=== PATIENT | female | born 1965 | race African-American/Black ===

== ENCOUNTER 2019-02-10 23:51 | Emergency (ER) | payer OTHER ==
[~2019-02-10] VITALS: Ht 172.7 cm; Wt 75.9 kg
[~2019-02-10 23:51] MED LIST: BEN50 PO; EPIN0.3P4 INJ; PRED20TA PO
[2019-02-10 23:53] VITALS: Ht 172.7 cm; Wt 75.9 kg
[2019-02-11] MEDS ORDERED: ALBUTEROL 0.083% (NEB) 2.5 MG/3 ML AMP INH STA (00:01)
[2019-02-11] MEDS ORDERED: DIPHENHYDRAMINE 50 MG INJ IV STA (00:01)
[2019-02-11] MEDS ORDERED: METHYLPREDNISOLONE 125 MG INJ IV STA (00:01)
[2019-02-11] MEDS ORDERED: FAMOTIDINE 20 MG INJ IV STA (00:01)
[2019-02-11] MEDS ORDERED: IPRATROPIUM (NEB) 0.5 MG/2.5 ML AMP INH STA (00:01)
[2019-02-11 03:16] VITALS: BP 133/76; PULSE 78; RESP 14
--- NOTE | 2019-02-11 03:37 | ERD ---
ER Documentation Chief Complaint Chief Complaint POSS ALLERGIC RX TO CASTOR OIL [id number];ITCHING IN THROAT; AIRWAY PATENT HPI Is a very pleasant female comes in with her throat tightness and tongue swelling status post being exposed to castor oil. Patient has known history to seafood. She denies fevers or chills. She denies any difficulty tolerating secretions. Denies any current issues ROS All systems reviewed and are negative except as per history of present illness. Medications Home Meds Active Scripts Prednisone* (Prednisone*) 20 Mg Tab, 40 MG PO DAILY for 4 Days, TAB Prov:WILMER MERCHANT Jocelyn 02/11/19 Epinephrine (Epipen 2-Robert) 0.3 Mg/0.3 Ml Pen.injctr, 1 EA INJ ONCE PRN for ALLERGIC REACTION, #1 EA Prov:RONSHASTAWILMER Jocelyn 02/11/19 Diphenhydramine Hcl* (Benadryl*) 50 Mg Cap, 50 MG PO Q6H PRN for ITCHING/RASH, #30 CAP Prov:RONLEE VEGASEL Jocelyn 02/11/19 Allergies Allergies: Coded Allergies: rofecoxib (Verified Allergy, Unknown, 02/11/19) PMhx/Soc History of Surgery: Yes (D&C, FIBROID REMOVAL) Anesthesia Reaction: No Hx Neurological Disorder: No Hx Respiratory Disorders: No Hx Cardiac Disorders: Yes (HTN ) Hx Psychiatric Problems: No Hx Miscellaneous Medical Probl: Yes (MIGRAINES ) Hx Alcohol Use: Yes (SOCIAL ) Hx Substance Use: No Hx Tobacco Use: No Smoking Status: Never smoker Physical Exam Vitals Vital Signs Date Temp Pulse Resp B/P (MAP) Pulse Ox O2 O2 Flow FiO2 Time Delivery Rate 02/11/19 78 14 133/76 99 Room Air 03:16 (95) 02/11/19 70 20 97 21 00:29 02/10/19 97.3 82 19 201/104 97 23:53 (136) Physical Exam Const: No acute distress Head: Atraumatic Eyes: Normal Conjunctiva ENT: Normal External Ears, Nose and Mouth. Neck: Full range of motion. No meningismus. Resp: Clear to auscultation bilaterally Cardio: Regular rate and rhythm, no murmurs Abd: Soft, non tender, non distended. Normal bowel sounds Skin: No petechiae or rashes Back: No midline or flank tenderness Ext: No cyanosis, or edema Neur: Awake and alert Psych: Normal Mood and Affect Result Diagram: 02/11/19 0051 02/11/19 0051 Results 24 hrs Laboratory Tests Test 02/11/19 00:51 White Blood Count 5.8 10^3/ul Red Blood Count 4.32 10^6/ul Hemoglobin 12.0 g/dl Hematocrit 38.8 % Mean Corpuscular Volume 89.8 fl Mean Corpuscular Hemoglobin 27.8 pg Mean Corpuscular Hemoglobin Concent 30.9 g/dl Red Cell Distribution Width 12.0 % Platelet Count 228 10^3/UL Mean Platelet Volume 10.4 fl Immature Granulocytes % 0.200 % Neutrophils % 29.9 % Lymphocytes % 57.9 % Monocytes % 8.0 % Eosinophils % 3.5 % Basophils % 0.5 % Nucleated Red Blood Cells % 0.0 /100WBC Immature Granulocytes # 0.010 10^3/ul Neutrophils # 1.7 10^3/ul Lymphocytes # 3.3 10^3/ul Monocytes # 0.5 10^3/ul Eosinophils # 0.2 10^3/ul Basophils # 0.0 10^3/ul Nucleated Red Blood Cells # 0.0 10^3/ul Sodium Level 143 mmol/L Potassium Level 4.3 mmol/L Chloride Level 105 mmol/L Carbon Dioxide Level 32 mmol/L Anion Gap 6 Blood Urea Nitrogen 24 mg/dl Creatinine 1.16 mg/dl Est Glomerular Filtrat Rate mL/min 49 mL/min Glucose Level 103 mg/dl Calcium Level 10.2 mg/dl Total Bilirubin 0.2 mg/dl Direct Bilirubin 0.00 mg/dl Indirect Bilirubin 0.2 mg/dl Aspartate Amino Transf (AST/SGOT) 27 IU/L Alanine Aminotransferase (ALT/SGPT) 34 IU/L Alkaline Phosphatase 55 IU/L Troponin I < 0.012 ng/ml B-Type Natriuretic Peptide 57 PG/ML Total Protein 7.3 g/dl Albumin 4.3 g/dl Globulin 3.00 g/dl Albumin/Globulin Ratio 1.43 Current Medications Medications Dose Sig/Jonathan Start Time Status Last (Trade) Ordered Route PRN Stop Time Admin Dose Reason Admin 50 mg ONCE STAT 02/11/19 DC 02/11/19 Diphenhydrami IV 00:01 02/11/19 00:19 ne HCl 00:11 (Benadryl) Famotidine 20 mg ONCE STAT 02/11/19 DC 02/11/19 (Pepcid Iv) IV 00:01 02/11/19 00:19 00:11 125 mg ONCE STAT 02/11/19 DC 02/11/19 Methylprednis IV 00:01 02/11/19 00:19 olone Sodium 00:11 Succinate (Solu-Medrol) Albuterol 5 mg ONCE STAT 02/11/19 DC 02/11/19 (Proventil INH 00:01 02/11/19 00:28 0.083% (Neb)) 00:11 Ipratropium 0.5 mg ONCE STAT 02/11/19 DC 02/11/19 Center INH 00:01 02/11/19 00:29 (Atrovent 00:11 0.02% (Neb)) Procedures/MDM Chest X-ray 1V Interpreted by me: Soft Tissue: No acute abnormalities Bones: No acute abnormalities Mediastinum/Cardiac Silhouette/Lungs: [No acute abnormalities] EKG: Rate/Rhythm: [Normal Sinus Rhythm] QRS, ST, T-waves: [No changes consistent w/ acute ischemia] Impression: [No evidence of ischemia or arrhythmia] Patient's allergic symptoms have stabilized while they have been evaluated in the department without evidence of persistent systemic reaction. Patient is healthy and capable of treating and responding to rebound reactions. Patient appropriate for outpatient allergy work up and treatment. Patient's blood pressure was elevated (>120/80) but appears stable without evidence of hypertension emergency or urgency. The patient was counseled about the risks of hypertension and urged to pursue outpatient monitoring and therapy within a week with their primary care physician. Departure Diagnosis: Primary Impression: Allergic reaction Encounter type: initial encounter Qualified Codes: T78.40XA - Allergy, unspecified, initial encounter Condition: Stable Patient Instructions: Anaphylactic Shock WILMER MERCHANT Feb 11, 2019 03:37
== END 2019-02-11 04:56 | disposition home or self-care (01) ==
LOC: E/R 23:51
DX: R07.0 Pain in throat (principal); I10 Essential (primary) hypertension
CPT/HCPCS: 36415; 71045; 80053; 83880; 84484; 85025; 93005; 94664; 96374; 96375; 99285; J1200; J2930